=== PATIENT | female | born 1975 | race American Indian/Alaskan Native ===

== ENCOUNTER 2016-10-13 12:29 | Outpatient (CLI) | payer MEDICAID ==
[2016-10-13 15:40] LABS: Urine Drugs of Abuse Note Disclamer
[2016-10-13 15:53] LABS: Bilirubin,Urine NEG (Negative); Blood,Urine NEG (Negative); Ketones,Urine 80 mg/dL (Negative); Leukocyte Esterase,Urine MOD (Negative); Mucus,Urine FEW /HPF; Nitrite,Urine NEG (Negative); Protein,Urine <15 mg/dL mg/dL (Negative); Urobilinogen,Urine < 2.0 mg/dL (<2.0); WBC,Urine < 1.0 /HPF (0.0-6.0)
== END 2016-10-13 13:42 | disposition home or self-care (01) ==
LOC: TRG 12:29
PROVIDERS: ATTEND Obstetrics & Gynecology
DX: O77.9 Labor and delivery complicated by fetal stress, unspecified (principal); O47.9 False labor, unspecified; Z3A.00 Weeks of gestation of pregnancy not specified
CPT/HCPCS: 59025; 80307; 81001

== ENCOUNTER 2016-10-14 09:10 | Inpatient (IN) | payer MEDICAID ==
--- NOTE | 2016-10-14 09:55 | History and Physical Report ---
History of Present Illness Date of examination: 10/14/16 Chief complaint: , labor ctx @ 37 weeks, late care @ 36 weeks, first visit 10/08/16. Patient noted to have BBOW and no cervix noted by RN upon arrival. History of present illness: EDC Confirmation: 11/02/2016 Past History : 9 Term Births: 7 Premature Births: 0 Living Children: 6 Para: 7 Mult. Births: 0 Prev : 0 Aborta: 1 Elect. Ab: 0 Spont. Ab: 1 Ectopics: 0 # 1 Delivery date: 1997 Weeks Gestation: 38 wks labor: no Delivery type: Delivery location: [place] Infant Sex: Female weight: 7#5 # 2 Delivery date: 1999 Weeks Gestation: ?? Delivery type: SAB Comments: no medical care # 3 Delivery date: 2000 Weeks Gestation: 37 Delivery type: Delivery location: [facility] Infant Sex: Male weight: 5#4 Comments: IUDF # 4 Delivery date: 2001 Weeks Gestation: term Delivery type: Delivery location: [place] Sex: Male weight: 7#4 # 5 Delivery date: 2004 Weeks Gestation: 37 labor: no Delivery type: Delivery location: [facility] Infant Sex: Male weight: 7#5 # 6 Delivery date: 2007 Weeks Gestation: 38 labor: no Delivery type: Delivery location: [facility] Sex: Female weight: 7#7oz # 7 Delivery date: 2009 Weeks Gestation: term Delivery type: Delivery location: [facility] Sex: Female weight: 7#5 # 8 Delivery date: 2012 Weeks Gestation: term Delivery type: Delivery location: [facility] Sex: Male weight: 8#5 Past Medical History: Negative Past Medical History Past Surgical History: negative Past Medical History Anesthesia Complications: negative Anemia: negative Autoimmune Disorder: negative Bleeding Disorder: negative Blood Transfusions: negative Breast Disease: negative Diabetes: negative Heart Disease: negative Hypertension: negative Hepatitis/Liver Disease: negative Kidney Disease/UTI: negative Neurologic/Epilepsy/Migraines: negative Phlebitis/Varicosities: negative Psychiatric: negative Pulmonary Disease/Asthma: negative Thyroid Disease: negative Hospitalizations: negative Surgery (Non-trade embalmer): negative Abnormal PAP: negative EMILIE Exposure: negative Infertility: negative Uterine Anomaly: negative Uterine Surgery (not C/S): negative Other Gynecologic Problems: negative Infection History Hx of STD: none HIV Risk Eval: low risk Hepatitis B Risk Eval: low risk Personal hx. of genital herpes: no Partner hx. of genital herpes: no Rash, Viral, or Febrile illness since last LMP? no Varicella/Chicken Pox Status: Previous Disease TB Risk: no Genetic History ADVANCED MATERNAL AGE Congenital Heart Defect: Mom: no Dad: no Néstor Disease: Mom: no Dad: no Thalassemia Mom: no Dad: no Neural Tube Defect Mom: no Dad: no Down's Syndrome Mom: no Dad: no Iglesia-Sachs Mom: no Dad: no Sickle Cell Disease/Trait Mom: no Dad: no Hemophilia Mom: no Dad: no Muscular Dystrophy Mom: no Dad: no Cystic Fibrosis Mom: no Dad: no [place] Chorea Mom: no Dad: no Mental Retardation Mom: no Dad: no Fragile X Mom: no Dad: no Other Genetic/Chromosomal Disorder Mom: no Dad: no Child w/other defect Mom: no Dad: no Enviromental Exposures Xray Exposure: no Medication, drug, or alcohol use since LMP: no Chemical/Other Exposure: no Exposure to Cat Liter: no Hx of Parvovirus (Fifth Disease): no Occupational Exposure to Children: none Active Medications: None Current Allergies: No known allergies Past History Social history: other (late care) - Obstetrical History Expected Date of Delivery: 11/02/16 Actual Gestation: 37 Week(s) 2 Day(s) : 9 Para: 7 Hx # Term Pregnancies: 7 Number of Pregnancies: 0 Spontaneous Abortions: 1 Induced : 0 Number of Living Children: 6 (HX 37 week IUFD) Medications and Allergies Allergies Allergy/AdvReac Type Severity Reaction Status Date / Time No Known Allergies Allergy Unverified 07/27/13 12:58 Home Medications Medication Instructions Recorded Confirmed Last Taken Type No Known Home Medications [No 08/27/13 09/01/13 Unknown History Reported Home Medications] Review of Systems All systems: negative - Physical Exam Breasts: Positive: normal Cardiovascular: Regular rate Lungs: Positive: Clear to auscultation, Normal air movement Abdomen: Positive: normal appearance, soft, normal bowel sounds Genitourinary (Female): Positive: normal external genitalia, normal perenium Vulva: both: normal Vagina: Positive: normal moisture Uterus: Positive: normal size, normal contour Anus/Rectum: Positive: normal perianal skin - Obstetrical FHR: auscultation normal Uterine Contraction Monitor Mode: External Cervical Dilatation: 8 Cervical Effacement Percentage: 90 station: -1 Uterine Contraction Pattern: Regular Uterine Tone Measurement Phase: Contraction Uterine Contraction Intensity: Strong/Firm Results All other labs normal. Assessment and Plan patient arrived with BBOW in vagina, (hx IUFD previous @ 37 weeks.)After AROM, pt was noted to be 8cms. complicate day insufficiency care, first visit @ 36 weeks, Unsure about LMP so dated by late third trimester u/s. Orders in EMR, anticipate . will start pitocin augmentation if ctx are not regular. - Patient Problems (1) 37 weeks gestation of Current Visit: Yes Status: Acute (2) Active labor at term Current Visit: Yes Status: Acute (3) Insufficient care in third trimester Current Visit: Yes Status: Acute Plan to address problem: Labs drawn in office 10/10/16, results not yet available to review except for GBS (negative) and GC/CH (negative). referred to [facility] for incomplete anatomy scan in office but patient was not able to keep appointment.
[2016-10-14] MEDS ORDERED: PITOCin/NS 20 UNIT/1000ML DRIP 1,000 ML IV ONE (09:57)
[2016-10-14] MEDS ORDERED: BRETHINE SUB-Q PRN (10:07)
[2016-10-14] MEDS ORDERED: ZOFRAN IV PRN ×2 (10:07→14:10)
[2016-10-14] MEDS ORDERED: SUBLIMAZE IV PRN (10:07)
[2016-10-14] MEDS ORDERED: MINERAL OIL PO PRN (10:07)
[2016-10-14 10:18] LABS: Hematocrit 32.6 % (30.3-42.9); Hemoglobin 10.3 gm/dl (10.1-14.3); Mean Corpuscular HGB Conc 32 % (30-34); Mean Corpuscular Volume 71 fl (79-97); Platelet Count 279 K/mm3 (140-440); Red Blood Count 4.61 M/mm3 (3.65-5.03); Red Cell Distribution Width 16.4 % (13.2-15.2); White Blood Count 9.3 K/mm3 (4.5-11.0)
[2016-10-14] MEDS ORDERED: PITOCin/NS 30 UNIT/500ML 500 ML IV ONE (10:21)
[2016-10-14 10:22] LABS: Mean Corpuscular Hemoglobin 22 pg (28-32)
[2016-10-14] MEDS ORDERED: LACTATED RINGERS 1,000 ML IV SCH (11:00)
[2016-10-14] MEDS ORDERED: PITOCin/NS 20 UNIT/1000ML DRIP 1,000 ML IV SCH (11:00)
[2016-10-14] MEDS ORDERED: ePHEDrine SULFATE IV PRN (11:17)
[2016-10-14] MEDS ORDERED: XYLOCAINE 2% INFILTRATI ONE (11:20)
--- NOTE | 2016-10-14 12:01 | Procedure Note ---
OB Delivery Note - Delivery Date of Delivery: 10/14/16 ( Male) Refining Still Operator: BERNABE JAIN Estimated blood loss: 300cc - Vaginal Delivery presentation: vertex Delivery position: OA Intrapartum events: decreased FHT variability, other(please specify) (Late care @ 36 weeks, ) Delivery induction: none Delivery augmentation: rupture of membranes, pitocin Delivery monitor: external FHT, external uterine Route of delivery: Delivery placenta: spontaneous Delivery cord: 3 umbilical vessels Episiotomy: none Delivery laceration: none Delivery comments: male del over intact perineum by RN while I was in another room, 3 vessel cord clamped and cut. infant taken to warmer for assessment - has physical characteristics of DS, PARAOPTOMETRIC and BURN NURSE called. (the DS was unknown d/t limited and late care.) Cord blood collected, placenta delivered intact and complete. Fundus firm, bleeding scant. EBL 300, Apgars 7/8, wt 7#9oz. NICU still assessing infant, mother oob to bathroom, in stable condition. - A at 1 minute: 7 at 5 minutes: 8 Gender: Male (7#9oz)
[2016-10-14] MEDS: MOTRIN PO PRN (12:20)
[2016-10-14] MEDS ORDERED: DULCOLAX PR PRN (14:10)
[2016-10-14] MEDS ORDERED: BENADRYL PO PRN (14:10)
[2016-10-14] MEDS ORDERED: SODIUM CHLORIDE FLUSH SYRINGE 10 ML IV SCH (14:10)
[2016-10-14] MEDS ORDERED: PHENERGAN PO PRN (14:10)
[2016-10-14] MEDS ORDERED: MILK OF MAGNESIA PO PRN (14:10)
[2016-10-14] MEDS ORDERED: LANSINOH TP PRN (14:10)
[2016-10-14] MEDS ORDERED: TYLENOL PO PRN (14:10)
[2016-10-14] MEDS: MOTRIN PO SCH (18:13)
[2016-10-15 00:18] LABS: Hematocrit 24.3 % (30.3-42.9); Hemoglobin 7.7 gm/dl (10.1-14.3)
[2016-10-15] MEDS ORDERED: BOOSTRIX IM ONE (06:00)
--- NOTE | 2016-10-15 06:25 | Discharge Summary ---
Providers - Providers Date of Admission: 10/14/16 09:46 Date of discharge: 10/15/16 (Pt desires to d/c but not leave if necessary) Attending physician: ROBERTO CORNEJO 10/14/16 14:10 Consult to Tubing Supervisor [CONS] Routine Reason For Exam: assistance with , SNS Primary care physician: JOSH PAIGE Hospitalization Reason for admission: active labor Delivery: Episiotomy: none Laceration: none Incision: dry, intact Other procedures: none complications: none Discharge diagnosis: IUP at term delivered baby: male (NICU stable) Hospital course: Insufficient PNC uncomplicated; male with what appears to be Down Syndrome stable in NICU No c/o pain this AM Pt just expressing being overwhelmed with care of a child with a disability Will have Case Mgt see pt today VSS FF below umb Lochia small Perineum intact H&H 7.7.3 chronic anemia Pt stable s/p vaginal delivery P: d/c today if pt desires may chg to AM if requested. PO iron Appt 4-6 weeks PP and circ if desired in 1-2 weeks. All questions addressed. Condition at discharge: Good Disposition: DISCHARGED TO HOME OR SELFCARE - Discharge Diagnoses (1) (normal spontaneous vaginal delivery) Status: Acute Comment: RTO 4-6 weeks PP care Plan - Discharge Medications Prescriptions: Ibuprofen [Motrin 800 MG tab] 800 mg PO Q8HR PRN #30 tablet PRN Reason: Pain Lidocain2.5%/Prilocai2.5% [Emla] 5 gm TP ONCE PRN #1 tube PRN Reason: Pain - Provider Discharge Summary Activity: routine, no sex for 6 weeks, no heavy lifting 4 weeks, no strenuous exercise Diet: routine Instructions: routine Additional instructions: [] Smoking cessation referral if applicable(refer to patient education folder for contact #) [] Refer to [facility] Booklet Call your doctor immediately for: * Fever > 100.5 * Heavy vaginal bleeding ( >1 pad per hour) * Severe persistent headache * Shortness of breath * Reddened, hot, painful area to leg or breast * Drainage or odor from incision. * Keep incision clean and dry at all times and follow doctor's instructions regarding bathing/showering - Follow up plan Follow up: JOSH PAIGE MD [Primary Care Provider] - 7 Days (Congratulations! Please call [phone] to schedule your visit in 4 weeks. Bring the EMLA cream with you to your son's circumcision in 1 week, if desired.Take medication as prescribed. Call with concerns.)
[2016-10-15] MEDS: MOTRIN PO PRN ×3 (06:30→18:15)
[2016-10-15] MEDS: PRENATAL VITAMIN PO SCH (11:17)
[2016-10-15] MEDS: XANAX PO SCH ×2 (12:10→22:15)
[2016-10-15] MEDS: MOTRIN PO SCH (12:43)
[2016-10-15] MEDS: TUCKS PAD TP PRN (19:54)
[2016-10-15] MEDS: DERMOPLAST TP PRN (19:55)
[2016-10-15] MEDS: NORCO 5/325 PO PRN (22:16)
[2016-10-16] MEDS: MOTRIN PO PRN ×2 (00:34→19:53)
[2016-10-16] MEDS: MOTRIN PO SCH ×2 (06:38→11:57)
[2016-10-16] MEDS: PRENATAL VITAMIN PO SCH (11:58)
--- NOTE | 2016-10-16 12:18 | Progress Note ---
Assessment and Plan - Patient Problems (1) (normal spontaneous vaginal delivery) Diagnosis Date: 10/14/16 Current Visit: No Status: Acute Plan to address problem: continue pathway (2) Depression affecting , Diagnosis Date: 10/15/16 Current Visit: Yes Status: Acute Plan to address problem: Pt states Xanax helps some but she has been more depressed than anxious Will continue to try to get Case Mgt to see pt and put in a consult to Psych . Will delay d/c until tomorrow Pt has no SI nor HI Just feels overwhelmed and numb. Subjective - Subjective Date of service: 10/16/16 (pt states she is feeling numb) Patient reports: appetite normal, voiding normally, pain well controlled : in NICU Objective - Vital Signs Latest vital signs: Vital Signs Temp Pulse Pulse Resp BP 10/16/16 08:54 97.7 F 76 22 100/50 10/16/16 06:38 18 10/16/16 00:34 18 10/16/16 00:00 98.4 F 83 20 99/57 10/15/16 22:16 18 10/15/16 16:10 97.6 F 97 H 20 105/52 Intake and Output 10/15/16 10/16/16 10/16/16 22:59 06:59 14:59 Intake Total 480 360 600 Balance 480 360 600 Intake: Oral 480 360 600 Other: Total, Intake Amount 480 120 120 # Voids Void 1 1 1 - Exam Breasts: Present: Cardiovascular: Present: Regular rate Lungs: Present: Normal air movement Abdomen: Present: normal appearance Uterus: Present: normal, fundal height below umbilicus Extremities: Present: edema Deep Tendon Reflex Grade: Normal +2 Incision: Present: normal
[2016-10-16] MEDS ORDERED: DEPO-PROVERA (CONTRACEPTION) IM ONE (12:19)
[2016-10-16] MEDS: XANAX PO SCH (12:47)
[2016-10-16] MEDS: NORCO 5/325 PO PRN (19:54)
[2016-10-16] MEDS ORDERED: PROCTOSOL-HC PR PRN (20:58)
[2016-10-17] MEDS: XANAX PO SCH ×2 (01:01→10:20)
[2016-10-17] MEDS: MOTRIN PO SCH ×2 (05:22→12:10)
--- NOTE | 2016-10-17 07:57 | Progress Note ---
Assessment and Plan discharge on chart, pt will have ride home today. She seems in good spirits, denies any SI. She has been visiting in NICU and reports he is doing well although anticipated discharge is not known by patient. VSSAF, Lochia scant , fundus firm. Plan for f/u in office 1 week d/t depression/anxiety. - Patient Problems (1) 37 weeks gestation of Current Visit: Yes Status: Resolved (2) Active labor at term Current Visit: Yes Status: Resolved (3) Insufficient care in third trimester Current Visit: Yes Status: Resolved (4) Anxiety Current Visit: Yes Status: Acute Plan to address problem: psych consult completed, she has OP referral information and appropriate referrals have been made by pt has rx (5) Depression affecting , Diagnosis Date: 10/15/16 Current Visit: Yes Status: Acute (6) (normal spontaneous vaginal delivery) Diagnosis Date: 10/14/16 Current Visit: No Status: Acute Plan to address problem: f/u in office 1 week d/t mental health issues Subjective - Subjective Date of service: 10/17/16 Principal diagnosis: day #3 s/p Interval history: EDC Confirmation: 11/02/2016 Past History : 9 Term Births: 7 Premature Births: 0 Living Children: 6 Para: 7 Mult. Births: 0 Prev : 0 Aborta: 1 Elect. Ab: 0 Spont. Ab: 1 Ectopics: 0 # 1 Delivery date: 1997 Weeks Gestation: 38 wks labor: no Delivery type: Delivery location: [place] Sex: Female weight: 7#5 # 2 Delivery date: 1999 Weeks Gestation: ?? Delivery type: SAB Comments: no medical care # 3 Delivery date: 2000 Weeks Gestation: 37 Delivery type: Delivery location: [facility] Sex: Male weight: 5#4 Comments: IUDF # 4 Delivery date: 2001 Weeks Gestation: term Delivery type: Delivery location: [place] Infant Sex: Male weight: 7#4 # 5 Delivery date: 2004 Weeks Gestation: 37 labor: no Delivery type: Delivery location: [facility] Infant Sex: Male weight: 7#5 # 6 Delivery date: 2007 Weeks Gestation: 38 labor: no Delivery type: Delivery location: [facility] Infant Sex: Female weight: 7#7oz # 7 Delivery date: 2009 Weeks Gestation: term Delivery type: Delivery location: [facility] Infant Sex: Female weight: 7#5 # 8 Delivery date: 2012 Weeks Gestation: term Delivery type: Delivery location: [facility] Sex: Male weight: 8#5 Past Medical History: Negative Past Medical History Past Surgical History: negative Past Medical History Anesthesia Complications: negative Anemia: negative Autoimmune Disorder: negative Bleeding Disorder: negative Blood Transfusions: negative Breast Disease: negative Diabetes: negative Heart Disease: negative Hypertension: negative Hepatitis/Liver Disease: negative Kidney Disease/UTI: negative Neurologic/Epilepsy/Migraines: negative Phlebitis/Varicosities: negative Psychiatric: negative Pulmonary Disease/Asthma: negative Thyroid Disease: negative Hospitalizations: negative Surgery (Non-shift supervisor melting): negative Abnormal PAP: negative EMILIE Exposure: negative Infertility: negative Uterine Anomaly: negative Uterine Surgery (not C/S): negative Other Gynecologic Problems: negative Infection History Hx of STD: none HIV Risk Eval: low risk Hepatitis B Risk Eval: low risk Personal hx. of genital herpes: no Partner hx. of genital herpes: no Rash, Viral, or Febrile illness since last LMP? no Varicella/Chicken Pox Status: Previous Disease TB Risk: no Genetic History ADVANCED MATERNAL AGE Congenital Heart Defect: Mom: no Dad: no Néstor Disease: Mom: no Dad: no Thalassemia Mom: no Dad: no Neural Tube Defect Mom: no Dad: no Down's Syndrome Mom: no Dad: no Iglesia-Sachs Mom: no Dad: no Sickle Cell Disease/Trait Mom: no Dad: no Hemophilia Mom: no Dad: no Muscular Dystrophy Mom: no Dad: no Cystic Fibrosis Mom: no Dad: no [place] Chorea Mom: no Dad: no Mental Retardation Mom: no Dad: no Fragile X Mom: no Dad: no Other Genetic/Chromosomal Disorder Mom: no Dad: no Child w/other defect Mom: no Dad: no Enviromental Exposures Xray Exposure: no Medication, drug, or alcohol use since LMP: no Chemical/Other Exposure: no Exposure to Cat Liter: no Hx of Parvovirus (Fifth Disease): no Occupational Exposure to Children: none Active Medications: None Current Allergies: No known allergies Patient reports: appetite normal, voiding normally, pain well controlled, ambulating normally, no dizzy ambulation : in NICU ( with DS; pt reports doing well & now taking bottle.) Objective - Vital Signs Latest vital signs: Vital Signs Temp Pulse Resp BP 10/17/16 05:22 18 10/16/16 22:49 97.4 F L 80 16 119/68 10/16/16 19:54 18 10/16/16 19:53 18 10/16/16 16:40 97.6 F 76 24 100/50 10/16/16 08:54 97.7 F 76 22 100/50 Intake and Output 10/16/16 10/17/16 10/17/16 22:59 06:59 14:59 Intake Total 600 Balance 600 Intake: Oral 360 Intake, Free Water 240 Other: Total, Intake Amount 360 # Voids Void 1 - Exam Breasts: Present: normal Cardiovascular: Present: Regular rate Lungs: Present: Clear to auscultation, Normal air movement Abdomen: Present: normal appearance, soft, normal bowel sounds Vulva: both: normal Uterus: Present: normal, firm, fundal height below umbilicus Extremities: Present: normal
[2016-10-17 08:54] VITALS: BP 121/69
[2016-10-17] MEDS: PRENATAL VITAMIN PO SCH (09:55)
[2016-10-17] MEDS: TUCKS PAD TP PRN (10:20)
[2016-10-17] MEDS: DERMOPLAST TP PRN (10:20)
== END 2016-10-17 16:10 | disposition home or self-care (01) | DRG 775 ==
LOC: TRG 09:10 → LD 09:46 → OB 13:40
PROVIDERS: ADMIT Obstetrics & Gynecology; ATTEND Obstetrics & Gynecology
PROC: 10E0XZZ Delivery of Products of Conception, External Approach (ICD-10-PCS; principal; 2016-10-14)
DX: O76 Abnormality in fetal heart rate and rhythm complicating labor and delivery (principal); O99.344 Other mental disorders complicating childbirth; F32.9 Major depressive disorder, single episode, unspecified; F41.9 Anxiety disorder, unspecified; O09.33 Supervision of pregnancy with insufficient antenatal care, third trimester; O09.523 Supervision of elderly multigravida, third trimester; Z37.0 Single live birth; Z3A.37 37 weeks gestation of pregnancy
CPT/HCPCS: 36415; 85014; 85018; 85027; 86592; 86850; 86900; 86901; 88307; 90471; 99211; G0463; J2405; J2590; J7120